=== PATIENT | female | born 1990 ===

== ENCOUNTER → 2019-11-11 | Outpatient (REF) | payer BC ==
[2019-12-29 20:46] LABS: APPEARANCE, URINE MANUAL CLEAR (CLEAR); COLOR, URINE MANUAL LT YELLOW (YELLOW)
[2019-12-29 20:47] LABS: BACTERIA, URINE MOD AMOUNT; BILIRUBIN, URINE MANUAL NEGATIVE (NEGATIVE); BLOOD URINE MANUAL POSITIVE (NEGATIVE); GLUCOSE, URINE (UA) MANUAL NEGATIVE (NEGATIVE); HYALINE CAST, URINE NONE SEEN /lpf (0-1); KETONE, URINE MANUAL NEGATIVE (NEGATIVE); LEUKOCYTE ESTERASE, URINE MAN TRACE (NEGATIVE); NITRITE, URINE MANUAL NEGATIVE (NEGATIVE); PH,URINE MAN 8.5 UNITS (5.0 - 7.0); PROTEIN, URINE MANUAL NEGATIVE (NEGATIVE); RBC, URINE 0-1 /hpf (0-3); SPECIFIC GRAVITY,URINE MANUAL 1.005 (1.002-1.035); SQUAMOUS EPITHELIAL CELL URINE SMALL AMOUNT /hpf (SMALL AMT); UROBILINOGEN, URINE MANUAL NORMAL (NORMAL); WBC, URINE 0-1 /hpf (0-3)
== END ==
LOC: M LAB REF 08:19
PROVIDERS: ATTEND Physician Assistant Medical
DX: M54.9 Dorsalgia, unspecified (principal); R10.9 Unspecified abdominal pain